=== PATIENT | male | born 1975 | race Caucasian/White ===

== ENCOUNTER 2025-07-11 09:17 | Emergency (ER) | payer OTHER ==
[~2025-07-11] VITALS: Ht 170.2 cm; Wt 75.0 kg
[2025-07-11 09:30] VITALS: O2SAT 99
[2025-07-11] MEDS: ACETAMINOPHEN 325MG TABLET PO ONE (10:00)
[2025-07-11 10:14] LABS: BASOPHILS % 0.7 % (0.0-2.0); EOSINOPHILS % 1.4 % (0.0-5.0); HEMATOCRIT. 47.7 % (42.0-52.0); HEMOGLOBIN. 16.0 g/dL (14.0-18.0); LYMPHOCYTES % 37.7 % (20.0-50.0); MEAN PLATELET VOLUME 10.7 fl (7.4-10.4); MONOCYTES % 8.9 % (2.0-8.0); NEUTROPHILS % 51.3 % (40.0-76.0); PLATELET 170 x1000/uL (130-400); RED BLOOD CELL COUNT 5.35 mill/uL (4.7-6.1); RED CELL DISTRIBUTION WIDTH 13.3 % (11.6-14.6)
[2025-07-11] MEDS: ACETAMINOPHEN 325MG TABLET PO NR (10:15)
[2025-07-11 10:33] LABS: CREATININE 1.1 mg/dL (0.6-1.3); UREA NITROGEN BLOOD 10 mg/dL (9-23)
[2025-07-11 10:35] LABS: ASPARTATE AMINOTRANSFERASE 26 IU/L (<34); BILIRUBIN DIRECT 0.1 mg/dL (<=3.0)
[2025-07-11 10:36] LABS: BILIRUBIN TOTAL 0.5 mg/dL (0.1-1.0); PROTEIN TOTAL 7.0 g/dL (6.0-8.3)
[2025-07-11 12:36] VITALS: BP 140/91; PULSE 64; RESP 18; TEMP 36.9; O2SAT 99
== END 2025-07-11 12:37 | disposition home or self-care (01) ==
LOC: ER 09:17
DX: R10.9 Unspecified abdominal pain (principal)
CPT/HCPCS: 36415; 74176; 80048; 80076; 85025; 99284; A4606